=== PATIENT | male | born 1970 ===

== ENCOUNTER 2018-04-06 11:45 | Emergency (ER) | payer SELFPAY ==
--- NOTE | 2018-04-06 12:12 | UC ---
General HPI - HPI Summary HPI Summary: 48 yo gentleman brought to [facility] via POV, c/o sudden onset headache. ms change, one episode emesis approx 10am this morning. 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 No recent illness / fever. No hx of similar sx or event. Supply Assistant strongly denies hx drugs / alcohol. No known b/ b d/o. Headache - "my head" points to frontal region. - History of Current Complaint Chief Complaint: UCHeadache Stated Complaint: HEADACHE Time Seen by Provider: 04/06/18 12:03 Hx Obtained From: Patient, Family/Communication Spec Pain Intensity: 8 - Allergy/Home Medications Allergies/Adverse Reactions: Allergies Allergy/AdvReac Type Severity Reaction Status Date / Time No Known Allergies Allergy Verified 04/06/18 12:02 Home Medications: Home Medications Hydrochlorothiazide TAB* [Hydrodiuril TAB*] 25 mg PO DAILY 04/06/18 [History Confirmed 04/06/18] PMH/Surg Hx/FS Hx/Imm Hx Previously Healthy: No - see hpi. pmh details unclear - Surgical History Surgical History: Yes Surgery Procedure, Year, and Place: leg surgery - Family History Known Family History: Positive: Unknown - Social History Alcohol Use: Weekly Substance Use Type: None Smoking Status (MU): Never Smoked Tobacco Review of Systems All Other Systems Reviewed And Are Negative: Yes Constitutional: Positive: Fatigue, Other - 1st person ros limited. ROS as possible via pt and via supervisor home economics present Skin: Positive: Negative Eyes: Positive: Other - see hpi ENT: Positive: Other - see hpi Respiratory: Positive: Other - see hpi Cardiovascular: Positive: Other - see hpi Gastrointestinal: Positive: Other - see hpi Genitourinary: Positive: Other - see hpi. Motor: Positive: Other - see hpi Neurovascular: Positive: Other - see hpi Musculoskeletal: Positive: Other: - see hpi Neurological: Positive: Other - see hpi Psychological: Positive: Other - see hpi Is Patient Immunocompromised?: No Physical Exam Triage Information Reviewed: Yes Completion Of Physical Exam Limited Due To: Altered Mental Status Appearance: Well-Nourished Vital Signs: Initial Vital Signs Temp 97.3 F 04/06/18 11:55 Pulse 69 04/06/18 11:55 Resp 16 04/06/18 11:55 BP 172/87 04/06/18 11:55 Pulse Ox 97 04/06/18 11:55 Vital Signs Reviewed: Yes Eye Exam: Other - pupils equal approx 2-3mm, reactive. EOM ROM difficult d/t ms ENT: Positive: Pharynx normal, TM dull Neck exam: Normal - no c/o pain / tenderness. Trachea midline, no stridor. Respiratory Exam: Normal - BS equal and clear. Not sonorous. No acute resp distress. Currently maintaining airway. Respiratory: Positive: Lungs clear, Normal breath sounds, No respiratory distress, No accessory muscle use Cardiovascular Exam: Normal Cardiovascular: Positive: RRR, Pulses Normal, Brisk Capillary Refill Abdominal Exam: Normal Abdomen Description: Positive: Nontender Bowel Sounds: Positive: Present Musculoskeletal Exam: Other - Moves all 4 ext's upon command. Strength grossly equal; however, exam limited d/t ms. Gait not tested. gross + sens LT x 4 ext. Neurological Exam: Other - See above. responds appriately to general questions. Speech slow, slurred. Answers with when queried re today's date. Facial expressions are grossly symmetric. MMM. Tongue - minimally protrudes, but is midline. Psychological Exam: Other Skin Exam: Normal - no visible or reported rash. Nondiaphoretic. Course/Dx - Course Course Of Treatment: EKG 70 bpm sinus rhythm, inf BL T abnormalities. No old for compl. BS 109mg / dL. Oxygen / IV saline lock ordered. EMS notified. D/ w Dr. Juarez, ED. Reviewed coa / tx plan (emerg transport to ED) with supervisor home economics, she expresses understanding and agreement. - Differential Dx - Multi-Symptom Provider Diagnoses: Headache. Altered MS. BP elevation 172/87 Discharge - Sign-Out/Discharge Documenting (check all that apply): Patient Departure All imaging exams completed and their final reports reviewed: No Studies - Discharge Plan Condition: Guarded Disposition: ADMITTED TO [facility] Referrals: No Primary Care Phys,NOPCP [Primary Care Provider] - - Billing Disposition and Condition Condition: GUARDED Disposition: Admitted to [facility]
[2018-04-06 12:42] VITALS: BP 160/84
== END 2018-04-06 12:35 | disposition short-term general hospital (02) ==
LOC: UCEAST 11:45
DX: R51 Headache (principal); R41.82 Altered mental status, unspecified; I10 Essential (primary) hypertension
CPT/HCPCS: 93005; 99213; G0463

== ENCOUNTER → 2018-10-06 09:59 | Day surgery (SDC) | payer OTHER ==
[~2018-10-06 09:59] MED LIST: Acetaminophen TAB* 325 MG ONE; Acetaminophen TAB* 325 MG PO ONE; Acetaminophen TAB* 325 MG PO PRN; Bacitracin OINTMENT* 0.5% 0.5 oz TUBE ONE; Buffered Lidocaine 1% SYRIN* 1 ML/SYRINGE INTRADERM ONE; Bupivacaine 0.5% W/EPI SDV* 30 ML VIAL ONE; DiMENhydriNATE IV* 50 MG/ML VIAL IV PUSH PRN; Famotidine IV* 10 MG/ML 2 ML (20 mg) ONE; Gabapentin CAP(*) 300 MG ONE; Gabapentin CAP(*) 300 MG PO ONE; HYDROcodone/ACETAMIN 5-325 MG* 1 TAB PO PRN; KETAMINE HCL* 50 MG/ML 10 ML VIAL ONE; Ketorolac INJ* 30 MG/ML 1 ML VIAL ONE; Lactated Ringers 1000 ML Bag* 1,000 ML IV SCH; Levalbuterol 0.63MG/3ML NEB* UNIT OF USE INH PRN; Lidocaine 1% INJ* 10 MG/ML 30 ML SDV ONE; Lidocaine 2% PF * 5 ML VIAL ONE; Midazolam* 1 MG/ML 2 ML VIAL (2 MG) ONE; Naloxone* 0.4 MG/ML 1 ML VIAL IV PRN; Ondansetron INJ* 2 MG/ML VIAL IV PRN; Propofol* 10 MG/ML 20 ML BTL ONE; ceFAZolin 2 GM PREMIX in ORs 2 GM/50 ML BAG IVPB ONE; diPHENhydraMINE IV* 50 MG/ML 1 ml VIAL (BENADRYL) IV PRN; fentaNYL* 50 MCG/ML 2 ML VIAL (100 MCG VIAL) ONE
--- NOTE | 2018-10-06 14:46 | BRIEFOPN ---
Brief Operative Note - Surgery Procedures: Procedures Pre-OP Diagnoses: back lipoma Post-op Diagnosis: same Procedure: excision of back lipoma Surgeon: Luz Marina Asst: none Anethesia: local DIANNE Trent EBL: minimal IVF: mimimal crystalloid Specimen: lipoma Drains: none
[2018-10-06 15:20] VITALS: BP 138/87
--- NOTE | 2018-10-06 20:07 | OP ---
CC: Primary Care Doctor, Ludin Torres NP * DATE OF OPERATION: 10/06/18 - [facility] DATE OF : 72 SURGEON: Bruno Raza MD. COORDINATE MEASURING EQUIPMENT OPERATOR: None. ANESTHESIOLOGIST: Dr. Trent. ANESTHESIA: Local MAC anesthesia. PRE-OP DIAGNOSIS: Right back lipoma. POST-OP DIAGNOSIS: Right back lipoma. OPERATIVE PROCEDURE: Excision of complex right back lipoma. BLOOD LOSS: Minimal. FLUIDS GIVEN: Minimal crystalloid fluid given. DRAINS: None. SPECIMEN: Lipoma. DESCRIPTION OF PROCEDURE: The patient was identified in the preoperative area. Consent obtained after additional discussion with the patient. He was then taken to the operating room, placed on the operating table in the left lateral decubitus position. Preoperative antibiotics were given. Sequential devices were placed to bilateral lower extremities. Gentle sedation was given. The patient's back was prepped and draped in the standard surgical fashion. Time- out was performed. Injection of the lidocaine at the purposed incision site that had been marked in the preoperative area was carried out along with additional medication around the lesion. Skin was incised. This was deepened down through the subcutaneous tissue down to the capsule which extended towards the musculature of the medial aspect. This fascia was incised minimally at the medial aspect with lipoma dipped into the area. We freed off the attachments and dissected an approximate 4 cm lipoma from what appeared to be half intramuscular and half extramuscular. This was passed off as specimen. The wound was irrigated. Hemostasis achieved and we reapproximated the defect with 3-0 nylon sutures in a mattress fashion. Antibiotic ointment and sterile dressing was applied. The patient tolerated the procedure well and was transferred to PACU in stable condition. [id number]/[facility] #: [id number] [facility]
== END | disposition home or self-care (01) ==
LOC: OR 09:59
PROVIDERS: ATTEND Surgery
DX: D17.9 Benign lipomatous neoplasm, unspecified (principal); I10 Essential (primary) hypertension; J45.909 Unspecified asthma, uncomplicated
CPT/HCPCS: 88304; A9270-GY; J0690; J1885; J2250; J2704; J3010